=== PATIENT | female | born 1955 | race Caucasian/White ===

== ENCOUNTER 2023-06-20 00:30 | Emergency (ER) | payer MEDICARE ==
[2023-06-20 00:43] VITALS: BP 156/84
[2023-06-20 00:45] VITALS: BP 121/80
[2023-06-20 01:00] VITALS: BP 154/79
[2023-06-20] MEDS ORDERED: TRAMADOL HCL50 MG PO (01:08)
[2023-06-20 01:15] VITALS: BP 159/83
[2023-06-20 01:30] VITALS: BP 142/77
[2023-06-20 01:35] VITALS: BP 142/77
== END 2023-06-20 02:02 | disposition home or self-care (01) ==
LOC: ED 00:30
DX: S52.502A Unspecified fracture of the lower end of left radius, initial encounter for closed fracture (principal); W19.XXXA Unspecified fall, initial encounter; Y92.009 Unspecified place in unspecified non-institutional (private) residence as the place of occurrence of the external cause